=== PATIENT | male | born 1990 | race Hispanic/Latino ===

== ENCOUNTER 2017-06-07 06:06 | Day surgery (SDC) | payer OTHER ==
[~2017-06-07] VITALS: Ht 175.3 cm; Wt 145.1 kg
[~2017-06-07 06:06] MED LIST: BACLOFEN10 MG PO; BL IBUPROFEN200 MG PO; DELTASONE20 MG; DICLOFENAC50 MG PO
[2017-06-07 13:30] VITALS: BP 148/82
== END 2017-06-07 07:40 | disposition home or self-care (01) | DRG 552 ==
LOC: ORM 06:06
PROVIDERS: ATTEND Anesthesiology Pain Medicine
PROC: 3E0R33Z Introduction of Anti-inflammatory into Spinal Canal, Percutaneous Approach (ICD-10-PCS; principal; 2017-06-07)
DX: M54.17 Radiculopathy, lumbosacral region (principal); M45.2 Ankylosing spondylitis of cervical region; M46.1 Sacroiliitis, not elsewhere classified
CPT/HCPCS: Q9967

== ENCOUNTER 2017-06-21 06:43 | Day surgery (SDC) | payer OTHER ==
[~2017-06-21] VITALS: Ht 175.3 cm; Wt 145.1 kg
[2017-06-21 08:39] VITALS: BP 128/56
== END 2017-06-21 08:42 | disposition home or self-care (01) | DRG 552 ==
LOC: ORM 06:43
PROVIDERS: ATTEND Anesthesiology Pain Medicine
PROC: 3E0R33Z Introduction of Anti-inflammatory into Spinal Canal, Percutaneous Approach (ICD-10-PCS; principal; 2017-06-21)
DX: M54.17 Radiculopathy, lumbosacral region (principal); R52 Pain, unspecified; M46.1 Sacroiliitis, not elsewhere classified; M51.26 Other intervertebral disc displacement, lumbar region
CPT/HCPCS: Q9967

== ENCOUNTER 2017-07-05 05:48 | Day surgery (SDC) | payer OTHER ==
[~2017-07-05] VITALS: Ht 175.3 cm; Wt 148.8 kg
[2017-07-05] MEDS ORDERED: DICLOFENAC50 MG PO ×2 (07:47→07:53)
[2017-07-05 08:15] VITALS: BP 105/53
== END 2017-07-05 08:10 | disposition home or self-care (01) | DRG 552 ==
LOC: ORM 05:48
PROVIDERS: ATTEND Anesthesiology Pain Medicine
PROC: 3E0R33Z Introduction of Anti-inflammatory into Spinal Canal, Percutaneous Approach (ICD-10-PCS; principal; 2017-07-05)
DX: M54.17 Radiculopathy, lumbosacral region (principal); R52 Pain, unspecified; M46.1 Sacroiliitis, not elsewhere classified; M51.26 Other intervertebral disc displacement, lumbar region
CPT/HCPCS: Q9967